=== PATIENT | female | born 1930 | race Caucasian/White ===

== ENCOUNTER 2017-06-01 15:52 | Emergency (ER) | payer OTHER ==
[~2017-06-01] VITALS: Ht 165.1 cm; Wt 57.6 kg
[~2017-06-01 15:52] MED LIST: ALENDRONATE SOD70 M1 PO; AVAPRO150 M1 PO; CALCIUM 600 +1 EA12 PO; COUMADIN 3 MG TA3 MG PO; DILTIAZEM 12HR120 MG PO; FISH OIL CONCEN1 SGL PO; LIPITOR10 M1 PO; OMEGA 3-6-9 11200 MG PO; VITAMIN D1000 IU PO; VITAMIN D31000 UNI1 PO; WOMEN'S DAILY1 EAC3 PO
[2017-06-01 16:22] LABS: ABSOLUTE BASOPHIL COUNT 0 /CUMM (0.0-0.2); ABSOLUTE EOSINOPHIL COUNT 0.1 /CUMM (0.0-0.7); ABSOLUTE GRANULOCYTE CT 4.6 /CUMM (1.4-6.5); ABSOLUTE LYMPH COUNT 2.2 /CUMM (1.2-3.4); ABSOLUTE MONOCYTE COUNT 0.6 /CUMM (0.10-0.60); BASOPHIL % 0.4 % (0.0-2.0); EOSINOPHIL % 1.4 % (0-5); GRANULOCYTE % 61.3 % (42.2-75.2); HEMATOCRIT 39.1 % (37-47); MEAN CORPUSCULAR HGB 29.8 PG (27.0-31.0); MEAN CORPUSCULAR HGB CONC 33.4 G/DL (33.0-37.0); MEAN CORPUSCULAR VOLUME 89.1 FL (81.0-99.0); MEAN PLATELET VOLUME 6.9 FL (7.4-10.4); PLATELET COUNT 342 /CUMM (130-400); RBC DISTRIBUTION WIDTH 13.2 % (11.5-14.5); RED BLOOD CELL CT 4.38 /CUMM (4.20-5.40); WHITE BLOOD CELL COUNT 7.5 /CUMM (4.8-10.8)
--- NOTE | 2017-06-01 17:37 | ED CARDIAC/CP/PALPITATIONS ---
History of Present Illness General Chief Complaint: Chest Pain Stated Complaint: CHEST PAIN Source: patient Exam Limitations: no limitations Vital Signs & Intake/Output Vital Signs & Intake/Output Vital Signs Date Time Temp Pulse Resp B/P B/P Pulse O2 O2 Flow FiO2 Mean Ox Delivery Rate 06/01 2047 97.0 97 18 144/76 98 Room Air 06/01 1900 Room Air 06/01 1847 89 19 132/80 96 Room Air 06/01 1601 98.3 96 18 155/72 95 Room Air Allergies Coded Allergies: NO KNOWN ALLERGIES (06/04/15) Reconcile Medications Alendronate Sodium 70 MG TABLET 1 TAB PO QWED OSTEOPOROSIS (Reported) in the morning, at least 30 minutes before the first food, beverage, or medication of the day Atorvastatin Calcium (Lipitor) 10 MG TABLET 1 TAB PO DAILY CHOLESTEROL ( Reported) Calcium Carbonate/Vitamin D3 (Calcium 600 + Vit D Tablet) (Unknown Strength) TABLET (Unknown Dose) PO DAILY SUPPLEMENT (Reported) Cholecalciferol (Vitamin D3) (Vitamin D3) 1,000 UNIT CAPSULE 1 CAP PO DAILY SUPPLEMENT (Reported) Diltiazem HCl (Diltiazem 12HR ER) 120 MG CAP.ER.12H 1 CAP PO DAILY HEART ( Reported) Fish Oil/Borage/Flax/Om3,6,9#1 (Whitewood 3-6-9 1,200 MG Softgel) 1,200 MG CAPSULE 1 CAP PO DAILY HEART HEALTH (Reported) Irbesartan (Avapro) 150 MG TABLET 1 TAB PO DAILY BP (Reported) Multivits,Ca,Minerals/Iron/FA (Women's Daily Caplet) 27 MG IRON-400 MCG TABLET 1 TAB PO DAILY SUPPLEMENT (Reported) Whitewood-3 Fatty Acids/Fish Oil (Fish Oil 1,000 MG Softgel) (Unknown Strength) CAPSULE (Unknown Dose) PO DAILY SUPPLEMENT (Reported) Triage Note: 86 YO FEMALE TO TRIAGE C/O PIAIN IN CENTER OF CHEST, STATES SHE WAS OUT WOKRING IN THE YARD AND WHEN SHE CAME IN THE PAIN STARTED, BALBIR MOYA. EKG COMPLETED ON ARRIVAL Triage Nurses Notes Reviewed? yes Onset: Gradual Duration: hour(s): (2) Timing: no prior history Quality/Severity: mild Location: central Radiation: no radiation Activities at Onset: AFTER GARDENING Prior Chest Pain/Card Workup: no prior chest pain Nitro Today/Relief: no nitro taken today Aspirin Today: no aspirin today HPI: Patient is a 86-year-old female with history of atrial fibrillation presenting to the emergency department with chief complaint of episode of chest pressure that was centrally located and nonradiating. Symptoms lasted for approximately 2 hours and then resolve completely. Patient describes the pain as a "twinge". Pain was mild. Denies any associated shortness of breath palpitations any diaphoresis in the neck or arm pain or back pain. No abdominal pain. Patient reports that she never had this pain before. She was feeling fine and had a full day of activities prior to onset of symptoms. Patient currently feels fine. Symptoms resolved once she was in the waiting room. Pain did not radiate anywhere. No numbness or tingling. DENIES Any dizziness or weakness. (Christin Santos) Past History Travel History Traveled to [place] past 21 day No Medical History Any Pertinent Medical History? see below for history Neurological: NONE EENT: NONE Cardiovascular: hypertension, A-FIB ELEVATED CHOLESTEROL Respiratory: NONE Gastrointestinal: gi BLEED, ANEMIA REQUIRING TRANSFUSION Hepatic: NONE Renal: NONE Musculoskeletal: osteoporosis Psychiatric: NONE Endocrine: vitamin D deficiency Blood Disorders: NONE Cancer(s): NONE HI TEACHER/Reproductive: NONE History of MRSA: No History of VRE: No History of CDIFF: No Surgical History Surgical History: non-contributory Psychosocial History Who do you live with Patient/Self Services at Home None What is your primary language Singaporean Tobacco Use: Never used Family History Family History, If Any: No Known Family History. Hx Contributory? No (Christin Santos) Review of Systems Review of Systems Constitutional: Reports: no symptoms. Comments Review of systems: See HPI, All other systems negative. Constitutional, no chills fever or weight loss HEENT: No visual changes no sore throat no congestion Cardiovascular: No palpitation , orthopnea or ankle swelling Skin, no jaundice no rashes Respiratory: No dyspnea cough sputum or hemoptysis GI: No nausea no vomiting : No dysuria No hematuria Muscle skeletal: no back pain, no neck pain, Neurologic: No numbness no confusion Psych: No stress anxiety or depression,. Heme/endocrine: No bruising no bleeding no polyuria or polydipsia Immunology: No splenectomy or history of AIDS (Christin Santos) Physical Exam Physical Exam General Appearance: well developed/nourished, no apparent distress, alert, awake , comfortable Cardiovascular: regular rate/rhythm Comments: Well-developed well-nourished person in no acute distress HEENT: Pupils equally round and reactive to light and accommodation. Nose is atraumatic. External auditory canal and Tympanic membranes clear. Pharynx normal. No swelling or edema. Neck: Normal inspection Back: Nontender Cardiovascular: Regular rate and rhythms no murmurs rubs or gallops, normal JVP Respiratory: Chest nontender. No respiratory distress.breath sounds clear to auscultation bilaterally Abdomen: Soft, nontender nondistended, no appreciable organomegaly. Normal bowel sounds. No ascites, no rebound or guarding. Extremity: No edema, no calf tenderness to palpation, normal and equal pulses. Neuro: Alert oriented x3 Skin: No appreciable rash on exposed skin, skin is warm and dry. Psych: Mood and affect is normal, memory and judgment is normal. Core Measures ACS in differential dx? Yes CVA/TIA Diagnosis No Sepsis Present: No Sepsis Focused Exam Completed? No (Vineet SAMUELS,Christin) Progress Differential Diagnosis: AMI, aortic dissection, cholecystitis, hyperkalemia, hypovolemia, hyperventilation, musculoskeletal pain, PVCs/PACs Plan of Care: Orders Procedure Date/time Status TROPONIN LEVEL 06/01 1999 Complete EKG 06/01 1999 Active TROPONIN LEVEL 06/01 1601 Complete COMPREHENSIVE METABOLIC PANEL 06/01 1601 Complete CBC WITHOUT DIFFERENTIAL 06/01 1601 Complete EKG 06/01 1553 Active Laboratory Tests 06/01/17 1928: Troponin I < 0.01 06/01/17 1606: Anion Gap 13, Estimated GFR > 60, BUN/Creatinine Ratio 28.6 H, Glucose 90, Calcium 9.9, Total Bilirubin 0.4, AST 24, ALT 32, Alkaline Phosphatase 92, Troponin I < 0.01, Total Protein 7.7, Albumin 4.5, Globulin 3.2, Albumin/ Globulin Ratio 1.4, CBC w Diff NO MAN DIFF REQ, RBC 4.38, MCV 89.1, MCH 29.8, MCHC 33.4, RDW 13.2, MPV 6.9 L, Gran % 61.3, Lymphocytes % 28.9, Monocytes % 8.0, Eosinophils % 1.4, Basophils % 0.4, Absolute Granulocytes 4.6, Absolute Lymphocytes 2.2, Absolute Monocytes 0.6, Absolute Eosinophils 0.1, Absolute Basophils 0 Patient has been pain-free entire emergency department visit. Pending repeat EKG and troponin and 8 PM. Patient will be signed out to ARVIND FINN If negative patient can be safely discharged home. Discussed with Dr. Peters and he agrees to plan. (Christin Santos) 06/01/2017 8:41:22 PM discussed with the patient at length all of her lab results she remains asymptomatic advise close follow-up with her maple products maker return precautions were discussed at length she feels comfortable plan. (Polo Soni) Diagnostic Imaging: Viewed by Me: Radiology Read. Discussed w/RAD: Radiology Read. Initial ED EKG: NSR (96 BPM) Prior EKG: unchanged Hand-Off Endorsed To: Polo Soni Endorsed Time: 1999 Pending: EKG, labs (Christin Santos) Diagnostic Imaging: Viewed by Me: Radiology Read. Discussed w/RAD: Radiology Read. Radiology Impression: PATIENT: EMELIA GRAY PRESENT AGE: 86 PATIENT ACCOUNT NO: [id number] : [birth year] LOCATION: [facility] ORDERING PHYSICIAN: Christin SAMUELS SERVICE DATE: 06/01/17 EXAM TYPE: RAD - XRY-CHEST XRAY, TWO VIEWS EXAMINATION: XR CHEST CLINICAL INFORMATION: Episode of chest pain. COMPARISON: Chest 01/22/2015. TECHNIQUE: 2 views of the chest were obtained. FINDINGS: Both lungs are fairly well-expanded and clear of acute process. The heart size and pulmonary vascularity is normal. No gross bony abnormality seen. IMPRESSION: Unremarkable chest examination. DICTATED BY: James Hayden MD DATE/TIME DICTATED:06/01/171946 JAVA SOFTWARE:ALEXANDRA DATE/ TIME TRANSCRIBED:06/01/171946 CONFIDENTIAL, DO NOT COPY WITHOUT APPROPRIATE AUTHORIZATION. <Electronically signed in Other Vendor System> SIGNED BY: James Hayden MD 06/01/171951 (Polo Soni) Departure Departure Disposition: HOME OR SELF CARE Condition: Stable Clinical Impression Primary Impression: Chest pain Qualifiers: Chest pain type: unspecified Qualified Code: R07.9 - Chest pain, unspecified Referrals: Lalo RAJAN,Andrea Martínez (PCP/Family) Additional Instructions: Follow-up with your maple products maker Dr. ALMARAZ, call tomorrow to make an appointment for the next 2- 4 days. Return for worsening symptoms or concerns. Take all medications as previously prescribed. Departure Forms: Customer Survey General Discharge Information (Christin Santos) Departure Time of Disposition: 2030 (Heather SAMUELS,Polo) PA/BILLING AUDITOR Co-Sign Statement Statement: ED Attending supervision documentation- [X] I saw and evaluated the patient. I have also reviewed all the pertinent lab results and diagnostic results. I agree with the findings and the plan of care as documented in the PA's/BILLING AUDITOR's documentation. [X] I have reviewed the ED Record and agree with the PA's/BILLING AUDITOR's documentation. [] Additions or exceptions (if any) to the PAs/BILLING AUDITOR's note and plan are summarized below: [] (Jose Antonio RAJAN,Buck Lovett) Critical Care Note Critical Care Note Critical Care Time: non-applicable (Christin Santos)
[2017-06-01] MEDS ORDERED: ALENDRONATE SOD70 M2 PO (19:10)
[2017-06-01] MEDS ORDERED: FISH OIL 1,0001 EAC4 PO (19:10)
--- NOTE | 2017-06-01 19:52 | RADIOLOGY REPORT ---
EXAMINATION: XR CHEST CLINICAL INFORMATION: Episode of chest pain. COMPARISON: Chest 01/22/2015. TECHNIQUE: 2 views of the chest were obtained. FINDINGS: Both lungs are fairly well-expanded and clear of acute process. The heart size and pulmonary vascularity is normal. No gross bony abnormality seen. IMPRESSION: Unremarkable chest examination.
[2017-06-01 20:48] VITALS: BP 144/76
== END 2017-06-01 20:49 ==
LOC: ERH 15:52
PROVIDERS: Emergency Medicine
DX: R07.9 Chest pain, unspecified (principal)
CPT/HCPCS: 71046; 93005; 93010